=== PATIENT | female | born 1995 | race African-American/Black ===

== ENCOUNTER 2017-08-22 10:57 | Emergency (ER) | payer MEDICAID ==
[~2017-08-22] VITALS: Ht 152.4 cm; Wt 51.7 kg
[2017-08-22 11:21] VITALS: BP 109/74
== END 2017-08-22 11:39 | disposition home or self-care (01) ==
LOC: ER 10:57
DX: S62.605A Fracture of unspecified phalanx of left ring finger, initial encounter for closed fracture (principal); W22.8XXA Striking against or struck by other objects, initial encounter; Y93.89 Activity, other specified; Y99.8 Other external cause status; Y92.89 Other specified places as the place of occurrence of the external cause
CPT/HCPCS: 29130; 73140

== ENCOUNTER 2019-06-02 08:08 | Emergency (ER) | payer MEDICAID ==
[~2019-06-02] VITALS: Ht 152.4 cm; Wt 62.1 kg
[2019-06-02 08:23] VITALS: BP 131/66
== END 2019-06-02 08:53 | disposition home or self-care (01) ==
LOC: ER 08:08
DX: S83.92XA Sprain of unspecified site of left knee, initial encounter (principal); W19.XXXA Unspecified fall, initial encounter; Y93.89 Activity, other specified; Y92.89 Other specified places as the place of occurrence of the external cause; Y99.8 Other external cause status
CPT/HCPCS: 73562